=== PATIENT | male | born 1940 ===

== ENCOUNTER 2017-04-18 14:34 | Emergency (ER) | payer OTHER, BC ==
[2017-04-18 14:44] VITALS: PULSE 71; RESP 16; TEMP 98.1; O2SAT 94
--- NOTE | 2017-04-18 15:15 | EDPHY ---
H & P Time Seen by Provider: 04/18/17 14:54 HPI/ROS: CHIEF COMPLAINT: Finger laceration History by patient HISTORY OF PRESENT ILLNESS: 76-year-old man presents with laceration to left ring finger when he tried to catch a falling broken glass. He denies any other pain or injury. His last tetanus was less than 10 years ago. REVIEW OF SYSTEMS: As in HPI, and all other systems reviewed and are negative Smoking Status: Never smoked Constitutional: Initial Vital Signs Temperature (C) 36.7 C 04/18/17 14:39 Heart Rate 71 04/18/17 14:39 Respiratory Rate 16 04/18/17 14:39 Blood Pressure 106/62 04/18/17 14:39 O2 Sat (%) 94 04/18/17 14:39 O2 Delivery Mode Room Air Allergies/Adverse Reactions: No Known Allergies Allergy (Verified 04/18/17 14:45) Home Medications: Medication Instructions Recorded Amlodipine Besylate 06/17/15 Aspirin 06/17/15 Metrogel 06/17/15 Simvastatin 06/17/15 Citalopram [CeleXA 20 MG] 06/21/15 Wavylnhize-Ctszxojibfe-WOR Tab 06/07/16 Losartan/Hydrochlorothiazide 06/07/16 MDM/Departure - MDM Imaging Results: Imaging Impressions Finger X-Ray 04/18/17 15:13 Impression: No radiopaque foreign object identified. Procedures: Procedure: Laceration repair. Verbal consent was obtained from the patient. The superficial laceration on the left ring finger was anesthetized in the usual fashion with LET initially and then a ring block using 0.5% Marcaine with good anesthesia.. The wound was irrigated, draped and explored. There were no deep structures involved. No tendon injury was identified. The wound was repaired with 4 times 5 0 Prolene interrupted sutures without complication. The wound repair was uncomplicated. The procedure was performed by myself. ED Course/Re-evaluation: 76-year-old man presents with ring finger laceration which was repaired by myself without complication. - Depart Disposition: Home, Routine, Self-Care Clinical Impression: Laceration of left ring finger w/o foreign body w/o damage to nail Condition: Good Instructions: Finger Laceration (ED) Additional Instructions: You were seen by Dr. Randi Roberts today. Please have your sutures removed in about 7 days. Watch for signs symptoms of infection including but not limited drainage, redness, increased pain or fever. Return for any worsening or new concerns.
[2017-04-18 18:56] VITALS: BP 110/70
== END 2017-04-18 18:15 | disposition home or self-care (01) ==
LOC: CED 14:34
PROC: 0HQGXZZ Repair Left Hand Skin, External Approach (ICD-10-PCS; principal; 2017-04-18)
DX: S61.215A Laceration without foreign body of left ring finger without damage to nail, initial encounter (principal); Z79.82 Long term (current) use of aspirin; W25.XXXA Contact with sharp glass, initial encounter
CPT/HCPCS: 73140-PO